=== PATIENT | female | born 1940 ===

== ENCOUNTER 2017-04-17 16:10 | Inpatient (IN) | payer MEDICARE, MEDICAID ==
--- NOTE | 2017-04-17 19:45 | NUR ---
RECEIVED PATIENT AT THIS TIME AWAKE ALERT AND ORIENTED X 4 LYING ON GURNEY IN NO ACUTE DISTRESS . ARRIVED FROM [facility]IA [facility], RECEIVED REPORT FROM [facility]. VITALS STABLE., ORIENTED TO UNIT AND ROOM, CALL LIGHT AND PLAN OF CARE. PT VERBALIZED UNDERSTANDING. BELONGINGS LIST DONE. PT BEING SEEN BY DR. ERNANDEZ.
[2017-04-17] MEDS ORDERED: MELO-107 PO (20:47)
[2017-04-17] MEDS ORDERED: PANT40TA4 PO (20:47)
[2017-04-17] MEDS ORDERED: SIMV20TA6 PO (20:47)
[2017-04-17] MEDS ORDERED: RISE35TA8 PO (20:47)
[2017-04-17] MEDS ORDERED: METF10002 PO (20:47)
[2017-04-17] MEDS ORDERED: OLAN5TAB3 PO (20:47)
[2017-04-17] MEDS ORDERED: SOLI5TAB2 PO (20:47)
[2017-04-17] MEDS ORDERED: INSU100V28 SQ (20:47)
[2017-04-17] MEDS ORDERED: AMLO5TAB2 PO (20:47)
[2017-04-17] MEDS ORDERED: LISI10TA5 PO (20:47)
[2017-04-17] MEDS ORDERED: GLIP5TAB13 PO (20:47)
[2017-04-17] MEDS ORDERED: OMEP20TA5 PO (20:47)
[2017-04-17] MEDS ORDERED: [UNRECOGNIZED DRUG - CODE] MC (20:48)
--- NOTE | 2017-04-17 20:51 | NUR ---
Called [facility] to notify MD of Admission. Dr. Jones front window cashier. Awaiting call back. Addendum: 04/17/17 at 2237 by JESUS MICHAEL RN 2100: Spoke with Dr. Jones. Notified of new admission. Per MD, Ok to continue all patients meds. Asked MD if he will Reconcile medications, he verbalized he can't do it and to just T/O medications. Will endorse to AM shift regarding the Med Reconciliation.
[2017-04-17] MEDS ORDERED: DEXTROSE 50% 50 ML DISP.SYRIN IV PRN (21:15)
[2017-04-17] MEDS ORDERED: OLANZAPINE 5 MG TABLET ONE (21:28)
[2017-04-17] MEDS ORDERED: SIMVASTATIN 20 MG TABLET ONE (21:28)
[2017-04-17] MEDS ORDERED: LORAZEPAM 0.5 MG TABLET ONE (21:29)
[2017-04-17] MEDS: SIMVASTATIN 20 MG TABLET PO SCH ×2 (22:12→22:22)
[2017-04-17] MEDS: LORAZEPAM 0.5 MG TABLET PO PRN (22:12)
[2017-04-17] MEDS: OLANZAPINE 5 MG TABLET PO SCH ×2 (22:12→22:22)
[2017-04-17] MEDS: BLOOD SUGAR DIAGNOSTIC 1 EACH STRIP VI SCH (22:21)
[2017-04-17] MEDS: INSULIN REGULAR, HUMAN 300 UNIT/3 ML VIAL SQ PRN (22:29)
[2017-04-18] MEDS: BLOOD SUGAR DIAGNOSTIC 1 EACH STRIP VI SCH ×3 (06:34→17:28)
[2017-04-18] MEDS ORDERED: PANTOPRAZOLE SODIUM 40 MG TABLET.DR PO SCH (07:00)
[2017-04-18] MEDS ORDERED: PANTOPRAZOLE SODIUM 40 MG TABLET.DR PO ONE (07:12)
--- NOTE | 2017-04-18 07:15 | NUR ---
RECEIVED REPORT FROM [employer] NURSE, PT IS ASLEEP, NO C/O PAIN, NO DISTRESS, WILL CONTINUE TO MONITOR.
[2017-04-18 07:21] LABS: BASOPHILS # (AUTO) 0.1 K/uL (0.0-8.0); BASOPHILS % (AUTO) 0.7 % (0.0-2.0); EOSINOPHILS # (AUTO) 0.9 K/uL (0.0-0.7); EOSINOPHILS % (AUTO) 10.7 % (0.0-7.0); HEMATOCRIT 29.9 % (37-47); HEMOGLOBIN 9.9 G/DL (12.0-16.0); LYMPHOCYTES % (AUTO) 23.6 % (20.5-51.5); MEAN CORPUSCULAR HEMOGLOBIN 27.5 UUG (27.0-31.0); MEAN CORPUSCULAR HGB CONC 33 g/dL (32.0-37.0); MEAN CORPUSCULAR VOLUME 83.2 FL (81.0-99.0); MONOCYTES # (AUTO) 0.8 K/UL (0.1-1.30); MONOCYTES % (AUTO) 9.6 % (0.0-11.0); NEUTROPHILS # (AUTO) 4.8 K/UL (1.8-8.9); NEUTROPHILS % (AUTO) 55.4 % (38.5-71.5); PLATELET COUNT (AUTO) 329 K/UL (150-450); WHITE BLOOD COUNT (AUTO) 8.6 K/UL (4.0-11.2)
[2017-04-18 07:44] LABS: CARBON DIOXIDE 28 mmol/L (21-32); CHLORIDE 103 mmol/L (98-107); CHOLESTEROL 113 mg/dL (<200); CREATININE 0.9 mg/dL (0.6-1.3); GLUCOSE 155 mg/dL (74-106); HDL CHOLESTEROL 47 mg/dL (40-60); MAGNESIUM 1.7 mg/dL (1.8-2.4); PHOSPHOROUS 4.4 mg/dL (2.5-4.9); TRIGLYCERIDES 107 MG/DL (30-150); UREA NITROGEN, BLOOD 18 mg/dL (7-18)
[2017-04-18 09:30] VITALS: BP 143/78
[2017-04-18] MEDS: INSULIN REGULAR, HUMAN 300 UNIT/3 ML VIAL SQ PRN ×4 (09:40→17:30)
[2017-04-18] MEDS ORDERED: MAGNESIUM OXIDE 400 MG TABLET PO ONE (13:45)
[2017-04-18] MEDS: LORAZEPAM 0.5 MG TABLET PO PRN (14:44)
--- NOTE | 2017-04-18 14:46 | NUR ---
GAVE PT 0.5MG OF ATIVAN, PT IS YELLING, DEMANDING PT, PT ALREADY HAD PT, THEY HAD EXPLAINED IT TO HER. WILL CONT TO MONITOR.
--- NOTE | 2017-04-18 15:30 | NUR ---
PT CALLED FAMILY MEMBER, TOLD HER SHE DID RECEIVE PT, INFORMED FAMILY MEMBER SHE DID RECEIVE OT AND PT.
--- NOTE | 2017-04-18 16:28 | NUR ---
PT LAYING IN BED CALM AND QUIET, WILL CONTINUE TO MONITOR, CALL LIGHT IN REACH, NO DISTRESS NOTICED.
--- NOTE | 2017-04-18 18:45 | NUR ---
PT LEFT AMA WITH SISTER, DOCTOR AWARE AND SAW PT. PREVIOUSLY PT PUT THE CALL LIGHT ON CONSTANTLY DEMANDING DIAPER TO BE CHANGED, DEMANDING OT/PT, DEMANDING A [employer] REPEATEDLY WANTED IT RIGHT NOW. SISTER CAME AND SAFELY TOOK PT USING WALKER TO HOME.
== END 2017-04-18 18:45 | disposition left against medical advice (07) | DRG 71 ==
PROVIDERS: ADMIT Physical Medicine & Rehabilitation Pain Medicine; ATTEND Nurse Practitioner Acute Care
DX: G93.40 Encephalopathy, unspecified (principal); K62.6 Ulcer of anus and rectum; R53.81 Other malaise; E11.9 Type 2 diabetes mellitus without complications; K59.00 Constipation, unspecified; K25.9 Gastric ulcer, unspecified as acute or chronic, without hemorrhage or perforation; E78.5 Hyperlipidemia, unspecified; E66.9 Obesity, unspecified; I10 Essential (primary) hypertension; K64.1 Second degree hemorrhoids; M19.90 Unspecified osteoarthritis, unspecified site; K29.70 Gastritis, unspecified, without bleeding
CPT/HCPCS: 36415; 83735; 84100; 85025; 92523; 92610; 97161; J1815